=== PATIENT | female | born 1970 | race African-American/Black ===

== ENCOUNTER 2018-07-03 12:48 | Inpatient (IN) | payer OTHER ==
--- NOTE | 2018-07-03 13:34 | PDOC ---
Attending Attestation - Resident Resident Name: JacMatias - ED Attending Attestation I have performed the following: I have examined & evaluated the patient, The case was reviewed & discussed with the resident, I agree w/resident's findings & plan, Exceptions are as noted - HPI HPI: 47 yo F history HIV, compliant with ART as per [facility] presents with fever, AMS. As per [facility], patient was confused when they evaluated her. She was not cooperative with exam which is not her baseline (typically she is pleasant and cooperative). She states that nothing is wrong, however, she is intermittently falling asleep during exam. She denies any intoxication, drug use. Very limited history due to clinical status. - Physicial Exam PE: GENERAL: Somnolent, wakes up to voice and answers questions partially, then falls asleep again. No acute distress HEAD: No signs of trauma EYES: PERRLA, EOMI, sclera anicteric, conjunctiva clear ENT: Auricles normal inspection, hearing grossly normal, nares patent, oropharynx clear without exudates. Dry mucosa NECK: Normal ROM, supple, no lymphadenopathy, JVD, or masses LUNGS: Breath sounds equal, clear to auscultation bilaterally. No wheezes, and no crackles HEART: Regular rate and rhythm, normal S1 and S2, no murmurs, rubs or gallops ABDOMEN: Soft, nontender, normoactive bowel sounds. No guarding, no rebound. No masses EXTREMITIES: Normal range of motion, no edema. No clubbing or cyanosis. No cords, erythema, or tenderness NEUROLOGICAL: Cranial nerves II through XII grossly intact. Slurred speech. Gait not tested due to somnolence. Motor and sensation intact SKIN: Warm, Dry, normal turgor, no rashes or lesions noted. - Medical Decision Making Pt presents with AMS, found to have fever and hypoxia. DDx includes sepsis, pna , hypercarbic resp failure, intoxication.
[2018-07-03] MEDS ORDERED: HALOPERIDOL LACTATE 5 MG/ML ONE (13:40)
[2018-07-03] MEDS ORDERED: HALOPERIDOL LACTATE 5 MG/ML IM ONE (13:48)
[2018-07-03 14:21] LABS: BASO % 0.6 % (0-2.0); EOS % 0.8 % (0-4.5); HEMATOCRIT 36.4 % (32.4-45.2); HEMOGLOBIN 12.2 GM/dL (10.7-15.3); LYMPH % 24.7 % (8-40); MCH 30.9 pg (25.7-33.7); MCHC 33.6 g/dl (32.0-36.0); MEAN CELL VOLUME 92.2 fl (80-96); MEAN PLT VOLUME 8.2 fl (7.5-11.1); MONO % 8.4 % (3.8-10.2); NEUT % 65.5 % (42.8-82.8); PLATELET COUNT 172 K/MM3 (134-434); RBC 3.95 M/mm3 (3.60-5.2); RDW 14.4 % (11.6-15.6); VENOUS PC02 55.4 mmHg (38-52); VENOUS PH 7.32 (7.32-7.42); VENOUS PO2 34.4 mmHg (28-48); WHITE BLOOD COUNT 5.6 K/mm3 (4.0-10.0)
[2018-07-03 14:42] LABS: INR 1.1 (0.83-1.09)
[2018-07-03 14:44] LABS: ACTIVATED PTT 33.6 SECONDS (25.2-36.5)
[2018-07-03 15:09] LABS: ALBUMIN 3.2 g/dl (3.4-5.0); ALK PHOS 95 U/L (45-117); ANION GAP 6 MMOL/L (8-16); BILIRUBIN,TOTAL 0.4 mg/dL (0.2-1); BLOOD UREA NITROGEN 13 mg/dL (7-18); CALCIUM 7.8 mg/dL (8.5-10.1); CHLORIDE 107 mmol/L (98-107); CO2 26 mmol/L (21-32); CREATININE 0.8 mg/dL (0.55-1.3); GLUCOSE,RANDOM 100 mg/dL (74-106); POTASSIUM 4.2 mmol/L (3.5-5.1); SGOT/AST 37 U/L (15-37); SGPT/ALT 30 U/L (13-61); SODIUM 139 mmol/L (136-145); TOT PROT 8.2 g/dl (6.4-8.2)
--- NOTE | 2018-07-03 15:23 | PDOC ---
History of Present Illness - General Chief Complaint: Cold Symptoms Stated Complaint: R/O PNE,AMS Time Seen by Provider: 07/03/18 13:06 History Source: Patient Exam Limitations: No Limitations - History of Present Illness Initial Comments: 47 yo female pmh of HIV (viral load undetectable, CD4 usually 600s) and scoliosis presents to the ED from PCP office (Dr. Niru Barfield) for AMS. Pt reportedly compliant with treatments and became agitated at office, PCP states this is not Pts baseline. Pt denies any complaints while in the ED but noted to be confused, unaware of how she came to the ED and attempts to dress herself and leave. 07/03/18 21:20 Pt on methadone program, 35 mg per day, received dose today Past History - Past Medical History Allergies/Adverse Reactions: Allergies Allergy/AdvReac Type Severity Reaction Status Date / Time doxycycline calcium Allergy Unknown Hives Verified 07/03/18 18:36 [From Vibramycin] doxycycline hyclate Allergy Unknown Hives Verified 07/03/18 18:36 [From Vibramycin] doxycycline monohydrate Allergy Unknown Hives Verified 07/03/18 18:36 [From Vibramycin] Home Medications: Ambulatory Orders Mometasone Furoate [Nasonex] 2 sprays DAILY 06/03/11 Zolpidem Tartrate [Ambien] 10 tab PO HS PRN #30 tablet MDD 1 04/02/18 Abacavir/Dolutegravir/Lamivudi [Triumeq 600-50-300 mg Tablet] 1 each PO DAILY # 30 tablet 05/26/18 Albuterol Sulfate Inhaler - [Ventolin HFA Inhaler -] 2 inh PO Q4H #1 inh Citalopram Hydrobromide [Celexa -] 10 tab PO DAILY #5 tablet 05/26/18 Loratadine [Claritin -] 10 mg PO DAILY #30 tablet 05/26/18 Montelukast Na [Singulair -] 10 mg PO HS #30 tablet 05/26/18 Multivitamin,Therapeutic [Thera] 1 each PO DAILY #30 tablet 05/26/18 Tenofovir Disoproxil Fumarate [Viread -] 300 mg PO DAILY #30 tablet 05/26/18 Anemia: No Asthma: Yes Cancer: No Cardiac Disorders: No CVA: No COPD: No CHF: No Dementia: No Diabetes: No GI Disorders: No Disorders: No HTN: No Hypercholesterolemia: No Liver Disease: No Seizures: No Thyroid Disease: No - Suicide/Smoking/Psychosocial Hx Smoking History: Current every day smoker Have you smoked in the past 12 months: Yes Number of Cigarettes Smoked Daily: 20 If you are a former smoker, when did you quit?: 3 Cigars Per Day: 0 Information on smoking cessation initiated: No Hx Alcohol Use: Yes (unsure of how much) Drug/Substance Use Hx: Yes (prescribed) Substance Use Type: Heroin Hx Substance Use Treatment: Yes Review of Systems - Review of Systems Able to Perform ROS?: No (Pt acutely altered) *Physical Exam - Vital Signs Last Vital Signs Temp Pulse Resp BP Pulse Ox 100.9 F H 104 H 18 142/79 98 07/03/18 12:50 07/03/18 12:50 07/03/18 12:50 07/03/18 12:50 07/03/18 12:50 - Physical Exam General Appearance: Yes: Nourished, Appropriately Dressed. No: Apparent Distress HEENT: positive: EOMI, GINO Respiratory/Chest: positive: Lungs Clear, Normal Breath Sounds Cardiovascular: positive: Regular Rhythm, Tachycardia. negative: Edema, JVD Vascular Pulses: Dorsalis-Pedis (R): 4+, Doralis-Pedis (L): 4+ Gastrointestinal/Abdominal: positive: Flat, Soft. negative: Pulsatile Mass, Tenderness Musculoskeletal: negative: CVA Tenderness Extremity: positive: Normal Capillary Refill Integumentary: positive: Normal Color, Dry, Warm Neurologic: positive: Motor Strength 5/5, Confused, Disoriented. negative: Fully Oriented (AOX2), Normal Mood/Affect (aggitated and attempts to leave ED without assesment), Facial Droop, Numbness, Sensory Deficit Moderate Sedation - Procedure Monitoring Vital Signs: Procedure Monitoring Vital Signs Temperature 100.9 F H 07/03/18 12:50 Pulse Rate 104 H 07/03/18 12:50 Respiratory Rate 18 07/03/18 12:50 Blood Pressure 142/79 07/03/18 12:50 O2 Sat by Pulse Oximetry (%) 98 07/03/18 12:50 ED Treatment Course - LABORATORY CBC & Chemistry Diagram: 07/04/18 08:30 07/04/18 08:30 - ADDITIONAL ORDERS Additional order review: Laboratory Results 07/03/18 07/03/18 07/03/18 14:05 14:05 14:05 PT with INR 13.00 INR 1.10 H PTT (Actin FS) 33.6 VBG pH 7.32 POC VBG pCO2 55.4 H POC VBG pO2 34.4 Mixed VBG HCO3 27.4 H Lactic Acid Ammonia 29.69 07/03/18 14:00 PT with INR INR PTT (Actin FS) VBG pH POC VBG pCO2 POC VBG pO2 Mixed VBG HCO3 Lactic Acid 0.6 Ammonia 07/03/18 14:05 RBC 3.95 MCV 92.2 MCHC 33.6 RDW 14.4 MPV 8.2 Neutrophils % 65.5 D Lymphocytes % 24.7 D Monocytes % 8.4 Eosinophils % 0.8 Basophils % 0.6 - Medications Given in the ED: ED Medications Discontinued Medications Generic Name Dose Route Start Last Admin Trade Name Freq PRN Reason Stop Dose Admin Haloperidol 5 mg 07/03/18 13:48 07/03/18 13:58 Haldol Injection (Fast Acting) - IM 07/03/18 13:49 5 mg NOW ONE Administration Medical Decision Making - Medical Decision Making 07/03/18 20:19 47 yo female PMH of HIV presents from PCP office confused. Vitals: 100.9 temp 104 HR 142/79 BP Septic workup, drug screen under way. Pt refusing CXR on multiple attempts Pt later agrees to CXR, it shows a new infiltrate. Will treat for CAP and admit Dr. Richardson agrees to admit pt *DC/Admit/Observation/Transfer Diagnosis at time of Disposition: Community acquired pneumonia of right lung - Discharge Dispostion Disposition: AGAINST MEDICAL ADVICE Condition at time of disposition: Guarded Decision to Admit order: Yes - Referrals - Patient Instructions - Post Discharge Activity
[2018-07-03] MEDS ORDERED: ACETAMINOPHEN 325 MG TABLET (FP) PO ONE (20:17)
[2018-07-03 20:18] LABS: URINE APPEARANCE SLCLOUDY; URINE BILIRUBIN NEGATIVE (<2.0 mg/dL); URINE COLOR YELLOW; URINE GLUCOSE (UA) NEGATIVE (NEGATIVE); URINE KETONE NEGATIVE (NEGATIVE); URINE LEUK ESTERASE NEGATIVE (NEGATIVE); URINE NITRITE NEGATIVE (NEGATIVE); URINE PROTEIN 1+ (NEGATIVE); URINE UROBILINOGEN NEGATIVE mg/dL (0.2-1.0)
[2018-07-03] MEDS ORDERED: ACETAMINOPHEN 325 MG TABLET (FP) ONE (20:18)
[2018-07-03 20:33] LABS: COCAINE, UR NEGATIVE ng/ml (CUTOFF=300); OPIATES, URI NEGATIVE ng/ml (CUTOFF=300); PHENCYCLIDINE,URINE NEGATIVE ng/ml (CUTOFF=25); URINE AMPHETAMINES NEGATIVE ng/ml (CUTOFF=500); URINE BARBITURATES NEGATIVE ng/ml (CUTOFF=200); URINE BENZODIAZEPINES NEGATIVE ng/ml (CUTOFF=200)
[2018-07-03 20:35] LABS: METHADONE, UR POSITIVE ng/ml (CUTOFF=300)
[2018-07-03 20:55] LABS: EPI CELLS RARE /HPF (FEW); URINE MUCUS RARE
[2018-07-03] MEDS ORDERED: CEFTRIAXONE 1,000 MG in DEXTROSE 5%-WATER - 50 ML IVPB ONE (21:27)
[2018-07-03] MEDS ORDERED: AZITHROMYCIN IVPB 500 MG in DEXTROSE 5%-WATER - 250 ML IVPB ONE (21:27)
--- NOTE | 2018-07-03 22:11 | PN ---
Teaching Attending Note Name of Resident: Puja Mora ATTENDING PHYSICIAN STATEMENT I saw and evaluated the patient. I reviewed the resident's note and discussed the case with the resident. I agree with the resident's findings and plan as documented. SUBJECTIVE: Patient is a 47 year old woman with PMH of Depression, asthma, positive PPD, tobacco use, HIV disease (viral load undetectable, CD4 usually 600s) and scoliosis who presents to the ER from PCP's office (Dr. Niru Barfield) for AMS. Had gone in to see PCP for symptoms of acute asthma exacerbation. She reportedly is compliant with treatments and became agitated at office and PCP states this is not her baseline. Patient offer no specific complaints while in the ER but noted to be confused, unaware of how she came to the ER and attempts to dress herself and leave. Given Haldol in the ER for agitation. She is on methadone program (35 mg/daily), and received today's dose. OBJECTIVE: Alert Vital Signs Period Temp Pulse Resp BP Sys/[place] Pulse Ox Last 24 Hr 100.9 F 104 18 142/79 98 HEENT: No Jaundice, eye redness or discharge, PERRLA, EOMI. Normocephalic, atraumatic. External ears are normal and hearing is grossly intact. No nasal discharge. Neck: Supple, nontender. No palpable adenopathy or thyromegaly. No JVD Chest: Good effort. Clear to auscultation and percussion. Heart: Regular. No S3, rub or murmur Abdomen: Not distended, soft, nontender and no HSM. No rebound or guarding. Normoactive bowel sounds. Ext: Peripheral pulses intact. No leg edema. Skin: Warm and dry. No petechiae, rash or ecchymosis. Neuro: Alert. Oriented x3. CN 2-12 grossly intact. Sensation grossly intact in all four extremities and DTR are symmetric. Current Medications Generic Name Dose Route Start Last Admin Trade Name Freq PRN Reason Stop Dose Admin Enoxaparin Sodium 40 mg 07/04/18 10:00 Lovenox - SQ DAILY [facility] Home Medications Medication Instructions Recorded Mometasone Furoate [Nasonex] 2 sprays DAILY 06/03/11 Zolpidem Tartrate [Ambien] 10 tab PO HS PRN #30 tablet MDD 1 04/02/18 Abacavir/Dolutegravir/Lamivudi 1 each PO DAILY #30 tablet 05/26/18 [Triumeq 600-50-300 mg Tablet] Albuterol Sulfate Inhaler - 2 inh PO Q4H #1 inh 05/26/18 [Ventolin HFA Inhaler -] Citalopram Hydrobromide [Celexa -] 10 tab PO DAILY #5 tablet 05/26/18 Loratadine [Claritin -] 10 mg PO DAILY #30 tablet 05/26/18 Montelukast Na [Singulair -] 10 mg PO HS #30 tablet 05/26/18 Multivitamin,Therapeutic [Thera] 1 each PO DAILY #30 tablet 05/26/18 Tenofovir Disoproxil Fumarate 300 mg PO DAILY #30 tablet 05/26/18 [Viread -] Abnormal Lab Results 07/03/18 07/03/18 07/03/18 14:05 14:05 14:05 INR 1.10 H POC VBG pCO2 55.4 H Mixed VBG HCO3 27.4 H Anion Gap 6 L Calcium 7.8 L Albumin 3.2 L Urine Protein Urine Blood Methadone Screen Acetaminophen < 10 L 07/03/18 07/03/18 19:48 19:48 INR POC VBG pCO2 Mixed VBG HCO3 Anion Gap Calcium Albumin Urine Protein 1+ H Urine Blood 1+ H Methadone Screen Positive A* Acetaminophen ASSESSMENT AND PLAN: 1. Pneumonia with ?acute toxic metabolic encephalopathy - CXR shows RLL infiltrate and bullous changes in both apical zones (R>L). Being treated with Rocephin and Azithromycin, duoneb and solumedrol 40 mg qd. Altered mentation still a puzzle. Will get head CT scan. Case discussed with ID travel service consultant who feels that meningitis is unlikely, thus Lumbar Puncture is not indicated. Will monitor her closely with neurochecks and fall precautions. Will continue HAART and daily methadone. Urine toxicology revealed only methadone. 2. Tobacco Use We will provide patient all the necessary assistance to facilitate smoking cessation and prescribe Nicotine patch. 3. Obesity - Will provide patient all the necessary assistance, counseling and positive reinforcement to facilitate weight loss. Consult [employer] history professor. 4. DVT prophylaxis - Lovenox 40 mg SQ q 24 hours. 5. Advance directives - Full code
[2018-07-03] MEDS ORDERED: ZOLPIDEM TARTRATE 5 MG TABLET PO PRN (23:01)
[2018-07-03] MEDS ORDERED: ALBUTEROL SO4 2.5/IPRATROPIUM 0.5 INH SOL 3 ML VIAL.NEB. NEB PRN (23:15)
--- NOTE | 2018-07-03 23:18 | HP ---
CHIEF COMPLAINT:altered mental status/PNA PCP:[facility]- anya zelaya HISTORY OF PRESENT ILLNESS: 47 y/o female with PMH of HIV (on HAART; last CD4 600's viral load undetectable) , asthma was sent in from her PCP after she was found to be altered. She initially presented to the office for worsening of her asthma and increase use of her rescue inhaler. When she got to her PCP she was found to not be at her baseline- was found to be more confused and agitated so she was sent to the hospital. upon arrival to the hospital she was slightly somnolent then became agitated requiring the use of haldol. she denies any sick contacts at home or any recent travel. upon my examination she was alert/oriented X3 hwoever unclear exactly why she was sent to the hospital ER course was notable for: (1)t: 100.9, HR 104 (2)labs wnl; U/A negative; head CT pending (3)CXR: RLL infiltrate Recent Travel: denies PAST MEDICAL HISTORY: see above PAST SURGICAL HISTORY: denies Social History: Smokin-2 cigs per day for the last 15 years Alcohol:denies Drugs: former heroin; on methadone (35 daily) Family History: Allergies doxycycline calcium [From Vibramycin] Allergy (Unknown, Verified 07/03/18 18:36) Hives doxycycline hyclate [From Vibramycin] Allergy (Unknown, Verified 07/03/18 18:36) Hives doxycycline monohydrate [From Vibramycin] Allergy (Unknown, Verified 07/03/18 18 :36) Hives HOME MEDICATIONS: Home Medications Medication Instructions Recorded Mometasone Furoate [Nasonex] 2 sprays DAILY 06/03/11 Zolpidem Tartrate [Ambien] 10 tab PO HS PRN #30 tablet MDD 1 04/02/18 Abacavir/Dolutegravir/Lamivudi 1 each PO DAILY #30 tablet 05/26/18 [Triumeq 600-50-300 mg Tablet] Albuterol Sulfate Inhaler - 2 inh PO Q4H #1 inh 05/26/18 [Ventolin HFA Inhaler -] Citalopram Hydrobromide [Celexa -] 10 tab PO DAILY #5 tablet 05/26/18 Loratadine [Claritin -] 10 mg PO DAILY #30 tablet 05/26/18 Montelukast Na [Singulair -] 10 mg PO HS #30 tablet 05/26/18 Multivitamin,Therapeutic [Thera] 1 each PO DAILY #30 tablet 05/26/18 Tenofovir Disoproxil Fumarate 300 mg PO DAILY #30 tablet 05/26/18 [Viread -] REVIEW OF SYSTEMS CONSTITUTIONAL: Absent: fever, chills, diaphoresis, generalized weakness, malaise, loss of appetite, weight change HEENT: Absent: rhinorrhea, nasal congestion, throat pain, throat swelling, difficulty swallowing, mouth swelling, ear pain, eye pain, visual changes CARDIOVASCULAR: Absent: chest pain, syncope, palpitations, irregular heart rate, lightheadedness , peripheral edema RESPIRATORY: Present: cough, shortness of breath Absent: dyspnea with exertion, orthopnea, wheezing, stridor, hemoptysis GASTROINTESTINAL: Absent: abdominal pain, abdominal distension, nausea, vomiting, diarrhea, constipation, melena, hematochezia GENITOURINARY: Absent: dysuria, frequency, urgency, hesitancy, hematuria, flank pain, genital pain MUSCULOSKELETAL: Absent: myalgia, arthralgia, joint swelling, back pain, neck pain SKIN: Absent: rash, itching, pallor HEMATOLOGIC/IMMUNOLOGIC: Absent: easy bleeding, easy bruising, lymphadenopathy, frequent infections ENDOCRINE: Absent: unexplained weight gain, unexplained weight loss, heat intolerance, cold intolerance NEUROLOGIC: Absent: headache, focal weakness or paresthesias, dizziness, unsteady gait, seizure, mental status changes, bladder or bowel incontinence PSYCHIATRIC: Absent: anxiety, depression, suicidal or homicidal ideation, hallucinations. PHYSICAL EXAMINATION Vital Signs - 24 hr 07/03/18 12:50 Temperature 100.9 F H Pulse Rate 104 H Respiratory 18 Rate Blood Pressure 142/79 O2 Sat by Pulse 98 Oximetry (%) GENERAL: Awake, alert, oriented to self/time/place- unsure however why she was sent to the ED.. NECK: no JVD; no lymphadenopathy. LUNGS: coarse breath sounds at B/L bases HEART: Regular rate and rhythm, normal S1 and S2 without murmur, rub or gallop. ABDOMEN: Soft, nontender, not distended, normoactive bowel sounds, no guarding, no rebound, no masses. No hepatomegaly or splenomegaly. MUSCULOSKELETAL: Normal range of motion at all joints. No bony deformities or tenderness. No CVA tenderness. EXTREMITIES: warm; well-perfused; no clubbing/cyanosis or edema NEUROLOGICAL: Cranial nerves II-XII intact. Normal speech. Normal gait.sensation intact B/L; 5/5 strength UE and LE PSYCHIATRIC: Cooperative. Good eye contact. Appropriate mood and affect. SKIN: Warm, dry, normal turgor, no rashes or lesions noted, normal capillary refill. Laboratory Results - last 24 hr 07/03/18 07/03/18 07/03/18 14:00 14:05 14:05 WBC 5.6 RBC 3.95 Hgb 12.2 Hct 36.4 MCV 92.2 MCH 30.9 MCHC 33.6 RDW 14.4 Plt Count 172 D MPV 8.2 Absolute Neuts (auto) 3.6 Neutrophils % 65.5 D Lymphocytes % 24.7 D Monocytes % 8.4 Eosinophils % 0.8 Basophils % 0.6 Nucleated RBC % 0 PT with INR INR PTT (Actin FS) VBG pH POC VBG pCO2 POC VBG pO2 Mixed VBG HCO3 Sodium 139 Potassium 4.2 Chloride 107 Carbon Dioxide 26 Anion Gap 6 L BUN 13 Creatinine 0.8 Creat Clearance w eGFR > 60 Random Glucose 100 Lactic Acid 0.6 Calcium 7.8 L Total Bilirubin 0.4 AST 37 ALT 30 Alkaline Phosphatase 95 Ammonia Troponin I < 0.02 Total Protein 8.2 Albumin 3.2 L Serum , Qual Urine Color Urine Appearance Urine pH Ur Specific [place] Urine Protein Urine Glucose (UA) Urine Ketones Urine Blood Urine Nitrite Urine Bilirubin Urine Urobilinogen Ur Leukocyte Esterase Urine WBC (Auto) Urine RBC (Auto) Ur Epithelial Cells Urine Mucus Salicylates 4.2 Opiates Screen Methadone Screen Acetaminophen < 10 L Barbiturate Screen Phencyclidine Screen Ur Amphetamines Screen MDMA (Ecstasy) Screen Benzodiazepines Screen Cocaine Screen U Marijuana (THC) Screen Alcohol, Quantitative < 3.0 07/03/18 07/03/18 07/03/18 14:05 14:05 14:05 WBC RBC Hgb Hct MCV MCH MCHC RDW Plt Count MPV Absolute Neuts (auto) Neutrophils % Lymphocytes % Monocytes % Eosinophils % Basophils % Nucleated RBC % PT with INR 13.00 INR 1.10 H PTT (Actin FS) 33.6 VBG pH 7.32 POC VBG pCO2 55.4 H POC VBG pO2 34.4 Mixed VBG HCO3 27.4 H Sodium Potassium Chloride Carbon Dioxide Anion Gap BUN Creatinine Creat Clearance w eGFR Random Glucose Lactic Acid Calcium Total Bilirubin AST ALT Alkaline Phosphatase Ammonia 29.69 Troponin I Total Protein Albumin Serum , Qual Urine Color Urine Appearance Urine pH Ur Specific [place] Urine Protein Urine Glucose (UA) Urine Ketones Urine Blood Urine Nitrite Urine Bilirubin Urine Urobilinogen Ur Leukocyte Esterase Urine WBC (Auto) Urine RBC (Auto) Ur Epithelial Cells Urine Mucus Salicylates Opiates Screen Methadone Screen Acetaminophen Barbiturate Screen Phencyclidine Screen Ur Amphetamines Screen MDMA (Ecstasy) Screen Benzodiazepines Screen Cocaine Screen U Marijuana (THC) Screen Alcohol, Quantitative 07/03/18 07/03/18 07/03/18 15:02 19:48 19:48 WBC RBC Hgb Hct MCV MCH MCHC RDW Plt Count MPV Absolute Neuts (auto) Neutrophils % Lymphocytes % Monocytes % Eosinophils % Basophils % Nucleated RBC % PT with INR INR PTT (Actin FS) VBG pH POC VBG pCO2 POC VBG pO2 Mixed VBG HCO3 Sodium Potassium Chloride Carbon Dioxide Anion Gap BUN Creatinine Creat Clearance w eGFR Random Glucose Lactic Acid Calcium Total Bilirubin AST ALT Alkaline Phosphatase Ammonia Troponin I Total Protein Albumin Serum , Qual Negative Urine Color Yellow Urine Appearance Slcloudy Urine pH 5.0 Ur Specific [place] 1.026 Urine Protein 1+ H Urine Glucose (UA) Negative Urine Ketones Negative Urine Blood 1+ H Urine Nitrite Negative Urine Bilirubin Negative Urine Urobilinogen Negative Ur Leukocyte Esterase Negative Urine WBC (Auto) 1 Urine RBC (Auto) <1 Ur Epithelial Cells Rare Urine Mucus Rare Salicylates Opiates Screen Negative Methadone Screen Positive A* Acetaminophen Barbiturate Screen Negative Phencyclidine Screen Negative Ur Amphetamines Screen Negative MDMA (Ecstasy) Screen Negative Benzodiazepines Screen Negative Cocaine Screen Negative U Marijuana (THC) Screen Negative Alcohol, Quantitative ASSESSMENT/PLAN: 47 y/o female with PMH of HIV and asthma presents to the ED after being sent in from her PCP due to AMS and found to have a RLL infiltrate on chest xray. #acute metabolic encephalopathy possibly 2/2 PNA CXR shows RLL infiltrate ammonia level 29.69 utox positive strictly for methadone only -discussed with ID; c/w ceftriaxone and azithromycin -f/u blood cx -f/u head CT -Dr. kearney consulted -jamshid GARCIASN -neurochecks #HIV -c/w HAART therapy -last CD4 count in 600's; last viral load undectable -try and obtain outpatient records #Methadone use patient states her daily dose is 35mg received dose today -will need to confirm in AM F/E/N not on fluids monitor electrolytes NPO for now given that patient was altered upon arrival DVT PPX: lovenox Problem List - Problem (1) Altered mental status Code(s): R41.82 - ALTERED MENTAL STATUS, UNSPECIFIED (2) Community acquired pneumonia of right lung Code(s): J18.9 - PNEUMONIA, UNSPECIFIED ORGANISM (3) HIV (human immunodeficiency virus infection) Code(s): Z21 - ASYMPTOMATIC HUMAN IMMUNODEFICIENCY VIRUS INFECTION STATUS Visit type - Emergency Visit Emergency Visit: Yes ED Registration Date: 07/03/18 Care time: The patient presented to the Emergency Department on the above date and was hospitalized for further evaluation of their emergent condition. - New Patient This patient is new to me today: Yes Date on this admission: 07/03/18 - Critical Care Critical Care patient: No
[2018-07-04] MEDS ORDERED: AZITHROMYCIN IVPB 500 MG/250 ML BAG IVPB ONE (00:17)
[2018-07-04] MEDS ORDERED: CEFTRIAXONE 1 GM/50 ML BAG ONE (00:17)
[2018-07-04 03:17] VITALS: BMI 30.8
[2018-07-04] MEDS ORDERED: PT OWN MED DRAWER 7, Y5N ONE (09:24)
[2018-07-04] MEDS ORDERED: cefTRIAXone SODIUM 1 GM VIAL ONE (09:24)
[2018-07-04] MEDS ORDERED: DEXTROSE 5%-WATER - 50 ML IVPB ONE (09:24)
[2018-07-04] MEDS ORDERED: CEFTRIAXONE 1 GM in DEXTROSE 5%-WATER - 50 ML IVPB ONE (09:30)
[2018-07-04] MEDS: ENOXAPARIN NA (PORCINE) 40 MG/0.4 ML DISP.SYRIN SQ SCH (09:47)
[2018-07-04] MEDS: MULTIVITAMINS THER W-MINERALS COMBO TABLET (FP) PO SCH (09:48)
[2018-07-04 10:22] LABS: BASO % 0.2 % (0-2.0); EOS % 1.6 % (0-4.5); HEMATOCRIT 34.6 % (32.4-45.2); HEMOGLOBIN 11.5 GM/dL (10.7-15.3); LYMPH % 53.2 % (8-40); MCH 30.7 pg (25.7-33.7); MCHC 33.3 g/dl (32.0-36.0); MEAN CELL VOLUME 92.3 fl (80-96); MEAN PLT VOLUME 8.2 fl (7.5-11.1); MONO % 12.6 % (3.8-10.2); NEUT % 32.4 % (42.8-82.8); PLATELET COUNT 163 K/MM3 (134-434); RBC 3.74 M/mm3 (3.60-5.2); RDW 14.3 % (11.6-15.6); WHITE BLOOD COUNT 3.5 K/mm3 (4.0-10.0)
[2018-07-04] MEDS: ABACAVIR/DOLUTEGRAVIR/LAMIVUDI (TRIUMEQ) TABLET -NF PO SCH (10:36)
[2018-07-04] MEDS: CITALOPRAM HYDROBROMIDE 10 MG TABLET (FP) PO SCH (10:36)
[2018-07-04] MEDS: AZITHROMYCIN IVPB 250 MG in DEXTROSE 5%-WATER - 250 ML IVPB SCH (10:37)
[2018-07-04 10:50] LABS: ALBUMIN 3.1 g/dl (3.4-5.0); ALK PHOS 79 U/L (45-117); ANION GAP 5 MMOL/L (8-16); BILIRUBIN,TOTAL 0.3 mg/dL (0.2-1); BLOOD UREA NITROGEN 10 mg/dL (7-18); CALCIUM 8.1 mg/dL (8.5-10.1); CHLORIDE 105 mmol/L (98-107); CO2 29 mmol/L (21-32); CREATININE 0.8 mg/dL (0.55-1.3); GLUCOSE,RANDOM 79 mg/dL (74-106); MAGNESIUM 2.3 mg/dL (1.8-2.4); PHOSPHOROUS 3.3 mg/dL (2.5-4.9); SGOT/AST 36 U/L (15-37); SGPT/ALT 30 U/L (13-61); SODIUM 139 mmol/L (136-145); TOT PROT 7.9 g/dl (6.4-8.2)
--- NOTE | 2018-07-04 14:25 | CON.NEURO ---
Consult Consult Specialty:: neuro Reason for Consultation:: AMS - History of Present Illness History of Present Illness: 47 y/o female with PMH of HIV (on HAART; last CD4 600's viral load undetectable) , asthma was sent in from her PCP after she was found to be altered. She initially presented to the office for worsening of her asthma and increase use of her rescue inhaler. When she got to her PCP she was found to not be at her baseline- was found to be more confused and agitated so she was sent to the hospital. upon arrival to the hospital she was slightly somnolent then became agitated requiring the use of haldol. she denies any sick contacts at home or any recent travel. upon my examination she was alert/oriented X3 however unclear exactly why she was sent to the hospital I saw and examined the pt , hx as above ; she has refused CTH wo ; she c/o ahving cough w brown sputum ;she was found to have R LL infiltration on CXR , she is mildly sleepy on this encounter. She c/o chronic LBP and uses cane for ambulation. - Past Medical History ...LMP: 06/02/11 ...: No - Alcohol/Substance Use Hx Alcohol Use: Yes (unsure of how much) - Smoking History Smoking history: Current every day smoker Have you smoked in the past 12 months: Yes Aproximately how many cigarettes per day: 20 If you are a former smoker, when did you quit?: 3 Home Medications - Allergies Allergies/Adverse Reactions: Allergies Allergy/AdvReac Type Severity Reaction Status Date / Time doxycycline calcium Allergy Unknown Hives Verified 07/03/18 18:36 [From Vibramycin] doxycycline hyclate Allergy Unknown Hives Verified 07/03/18 18:36 [From Vibramycin] doxycycline monohydrate Allergy Unknown Hives Verified 07/03/18 18:36 [From Vibramycin] - Home Medications Home Medications: Ambulatory Orders Mometasone Furoate [Nasonex] 2 sprays DAILY 06/03/11 Zolpidem Tartrate [Ambien] 10 tab PO HS PRN #30 tablet MDD 1 04/02/18 Abacavir/Dolutegravir/Lamivudi [Triumeq 600-50-300 mg Tablet] 1 each PO DAILY # 30 tablet 05/26/18 Albuterol Sulfate Inhaler - [Ventolin HFA Inhaler -] 2 inh PO Q4H #1 inh Citalopram Hydrobromide [Celexa -] 10 tab PO DAILY #5 tablet 05/26/18 Loratadine [Claritin -] 10 mg PO DAILY #30 tablet 05/26/18 Montelukast Na [Singulair -] 10 mg PO HS #30 tablet 05/26/18 Multivitamin,Therapeutic [Thera] 1 each PO DAILY #30 tablet 05/26/18 Tenofovir Disoproxil Fumarate [Viread -] 300 mg PO DAILY #30 tablet 05/26/18 Family Disease History - Family Disease History Family Disease History: Diabetes: Grandparent, Mother (cervical ca), Heart Disease: Grandparent, Mother, CA: Mother, Other: Father (apr'd before pt was born), Brother (2 a&w), Sister (1 d age 50's drug od), Son (3 a&w) Physical Exam-Neuro Vital Signs: Vital Signs Temperature 98.6 F 07/04/18 14:03 Pulse Rate 85 07/04/18 14:03 Respiratory Rate 18 07/04/18 12:00 Blood Pressure 111/51 L 07/04/18 14:03 O2 Sat by Pulse Oximetry (%) 98 07/04/18 12:00 Constitutional: Yes: Well Nourished Neck: Yes: Supple Cardiovascular: Yes: Regular Rate and Rhythm Respiratory: Yes: WNL, Cough Musculoskeletal: Yes: Back Pain Edema: No Psychiatric: Yes: Alert, Other (sleepy ) Labs: CBC, BMP 07/04/18 08:30 07/04/18 08:30 INR, PTT INR 1.10 (0.83-1.09) H 07/03/18 14:05 - Neuro Exam Level Of Consciousness: Yes: Oriented to Person, Oriented to Place, Oriented to Time Eyes: Yes: PERRLA, Other (R eye exotropia ) Cranial Nerves II-XII Intact: Yes Gag: Present DTR's: 1+ Left Bicep, 1+ Right Bicep, 1+ Left Tricep, 1+ Right Tricep, 1+ Left Brachioradialis, 1+ Right Brachioradialis, 1+ Left Achilles, 1+ Right Achilles Babinski: Absent Response to light touch: Normal Response to pain prick: Normal Coordination: Normal: Finger to Nose Motor Strength: 5/5: Left Arm, Right Arm, Left Leg, Right Leg Gait: Other (use cane for ambulation) Problem List - Problems (1) Altered mental status Code(s): R41.82 - ALTERED MENTAL STATUS, UNSPECIFIED (2) Community acquired pneumonia of right lung Code(s): J18.9 - PNEUMONIA, UNSPECIFIED ORGANISM (3) HIV (human immunodeficiency virus infection) Code(s): Z21 - ASYMPTOMATIC HUMAN IMMUNODEFICIENCY VIRUS INFECTION STATUS Assessment/Plan 47 y/o w h/o HIV CD4: 600 , viral load not detected and chronic LBP p/w AMS , was found to have R LL infiltration on her lung; exam only mildy lethargic intermittently , no deficit . Hx and exam suggestive of infectious encephalopathy due to pneumonia vs HIV encephalopathy vs TIA . Pt refuses CTH I suggest psych consult if pt continues to refuse tx / procedure to evaluate for competency monitor ammonium level neuro check q 4 hours MRI brain when possible. Health maintenance per primary team. Thank you. Mendoza Martinez MD [phone]
--- NOTE | 2018-07-04 15:46 | PN ---
Progress Note (short form) - Note Progress Note: ID consult dictated stable HIV cd4 over 100, viral load negative recent quant 03/22 negative admitted with low grade fever 100.8 and hypoxia ?LLL infiltrate continue rocephin/zithromax urinary antigens influenza swab stable HIV- doubt OI- continue antiretrovirals f/u with neurology- head ct planned if patient is agreeable Problem List - Problems (1) Community acquired pneumonia of right lung Code(s): J18.9 - PNEUMONIA, UNSPECIFIED ORGANISM (2) HIV (human immunodeficiency virus infection) Code(s): Z21 - ASYMPTOMATIC HUMAN IMMUNODEFICIENCY VIRUS INFECTION STATUS
--- NOTE | 2018-07-04 21:14 | PN ---
Progress Note (short form) - Note Progress Note: Patient is comfortable with no acute distress. wants her methadone. Vital Signs Temperature 98.6 F 07/04/18 14:03 Pulse Rate 85 07/04/18 14:03 Respiratory Rate 18 07/04/18 12:00 Blood Pressure 111/51 L 07/04/18 14:03 O2 Sat by Pulse Oximetry (%) 98 07/04/18 16:00 GENERAL: Awake, alert, oriented x3 . NECK: no JVD; no lymphadenopathy. LUNGS: decreased BS BL at the bases. HEART: RRR, normal S1 and S2 without murmur, rub or gallop. ABDOMEN: Soft, nontender, not distended, positive for BS, no guarding, no rebound, no masses. MUSCULOSKELETAL: Normal range of motion at all joints. No CVA tenderness. EXTREMITIES: warm; well-perfused; no clubbing/cyanosis or edema NEUROLOGICAL: Cranial nerves II-XII intact. Normal speech. sensation intact B/L ; 5/5 strength UE and LE PSYCHIATRIC: Cooperative. Appropriate mood and affect. SKIN: Warm, dry, normal turgor, no rashes or lesions noted. CBCD WBC 3.5 K/mm3 (4.0-10.0) L 07/04/18 08:30 RBC 3.74 M/mm3 (3.60-5.2) 07/04/18 08:30 Hgb 11.5 GM/dL (10.7-15.3) 07/04/18 08:30 Hct 34.6 % (32.4-45.2) 07/04/18 08:30 MCV 92.3 fl (80-96) 07/04/18 08:30 MCHC 33.3 g/dl (32.0-36.0) 07/04/18 08:30 RDW 14.3 % (11.6-15.6) 07/04/18 08:30 Plt Count 163 K/MM3 (134-434) 07/04/18 08:30 MPV 8.2 fl (7.5-11.1) 07/04/18 08:30 CMP Sodium 139 mmol/L (136-145) 07/04/18 08:30 Potassium 4.0 mmol/L (3.5-5.1) 07/04/18 08:30 Chloride 105 mmol/L (98-107) 07/04/18 08:30 Carbon Dioxide 29 mmol/L (21-32) 07/04/18 08:30 Anion Gap 5 MMOL/L (8-16) L 07/04/18 08:30 BUN 10 mg/dL (7-18) 07/04/18 08:30 Creatinine 0.8 mg/dL (0.55-1.3) 07/04/18 08:30 Creat Clearance w eGFR > 60 (>60) 07/04/18 08:30 Random Glucose 79 mg/dL (74-106) 07/04/18 08:30 Calcium 8.1 mg/dL (8.5-10.1) L 07/04/18 08:30 Total Bilirubin 0.3 mg/dL (0.2-1) 07/04/18 08:30 AST 36 U/L (15-37) 07/04/18 08:30 ALT 30 U/L (13-61) 07/04/18 08:30 Alkaline Phosphatase 79 U/L (45-117) 07/04/18 08:30 Total Protein 7.9 g/dl (6.4-8.2) 07/04/18 08:30 Albumin 3.1 g/dl (3.4-5.0) L 07/04/18 08:30 CARDIAC ENZYMES Troponin I < 0.02 ng/ml (0.00-0.05) 07/03/18 14:05 Current Medications Generic Name Dose Route Start Last Admin Trade Name Freq PRN Reason Stop Dose Admin Abacavir/Dolutegravir/Lamivudine 1 each 07/04/18 10:00 07/04/18 10:36 Triumeq (Non-Formulary) PO 1 each DAILY LINDA Administration Albuterol/Ipratropium 1 amp 07/03/18 23:15 Duoneb - NEB Q6H PRN SHORTNESS OF BREATH Citalopram Hydrobromide 10 mg 07/04/18 10:00 07/04/18 10:36 Celexa - PO 10 mg DAILY LINDA Administration Enoxaparin Sodium 40 mg 07/04/18 10:00 07/04/18 09:47 Lovenox - SQ 40 mg DAILY LINDA Administration Azithromycin 250 mg/ Dextrose 250 mls @ 250 mls/hr 07/04/18 10:00 07/04/18 10 :37 IVPB 250 mls/hr DAILY LINDA Administration Ceftriaxone Sodium 1 gm/ 50 mls @ 100 mls/hr 07/05/18 10:00 Dextrose IVPB DAILY LINDA Protocol Multivitamins/Minerals 1 each 07/04/18 10:00 07/04/18 09:48 Theragran-M PO 1 each DAILY LINDA Administration Tenofovir Disoproxil Fumarate 300 mg 07/05/18 10:00 Viread - PO DAILY LINDA Zolpidem Tartrate 10 mg 07/03/18 23:01 Ambien - PO HS PRN INSOMNIA Home Medications Medication Instructions Recorded Mometasone Furoate [Nasonex] 2 sprays DAILY 06/03/11 Zolpidem Tartrate [Ambien] 10 tab PO HS PRN #30 tablet MDD 1 04/02/18 Abacavir/Dolutegravir/Lamivudi 1 each PO DAILY #30 tablet 05/26/18 [Triumeq 600-50-300 mg Tablet] Albuterol Sulfate Inhaler - 2 inh PO Q4H #1 inh 05/26/18 [Ventolin HFA Inhaler -] Citalopram Hydrobromide [Celexa -] 10 tab PO DAILY #5 tablet 05/26/18 Loratadine [Claritin -] 10 mg PO DAILY #30 tablet 05/26/18 Montelukast Na [Singulair -] 10 mg PO HS #30 tablet 05/26/18 Multivitamin,Therapeutic [Thera] 1 each PO DAILY #30 tablet 05/26/18 Tenofovir Disoproxil Fumarate 300 mg PO DAILY #30 tablet 05/26/18 [Viread -] Microbiology 07/03/18 14:05 Blood - Peripheral Venous Blood Culture - Preliminary NO GROWTH OBTAINED AFTER 24 HOURS, INCUBATION TO CONTINUE FOR 4 DAYS. Assessment nd plan: 47 y/o female with PMHx of HIV and asthma presents to the ED after being sent in from her PCP due to AMS and found to have a RLL infiltrate on chest xray. #acute metabolic encephalopathy possibly due to PNA on Rocephin/zith continue #HIV continue HAART therapy; last CD4 count in 600's; last viral load undectable , ID on the case. #Methadone use: patient states her daily dose is 35mg , detox consult was placed earlier today. DVT PPX: lovenox Visit type - Emergency Visit Emergency Visit: Yes ED Registration Date: 07/03/18 Care time: The patient presented to the Emergency Department on the above date and was hospitalized for further evaluation of their emergent condition. - New Patient This patient is new to me today: Yes Date on this admission: 07/04/18 - Critical Care Critical Care patient: No - Discharge Referral Referred to [facility] Med P.C.: No
[2018-07-05 06:15] VITALS: TEMP 98.3
[2018-07-05 08:12] VITALS: BP 144/91; PULSE 77
[2018-07-05] MEDS ORDERED: PT OWN MED DRAWER 7, Y5N ONE (09:53)
[2018-07-05] MEDS ORDERED: cefTRIAXone SODIUM 1 GM VIAL ONE (09:53)
[2018-07-05] MEDS ORDERED: DEXTROSE 5%-WATER - 50 ML IVPB ONE (09:53)
[2018-07-05] MEDS: CITALOPRAM HYDROBROMIDE 10 MG TABLET (FP) PO SCH (09:58)
[2018-07-05] MEDS: MULTIVITAMINS THER W-MINERALS COMBO TABLET (FP) PO SCH (09:58)
[2018-07-05] MEDS: ENOXAPARIN NA (PORCINE) 40 MG/0.4 ML DISP.SYRIN SQ SCH (09:58)
[2018-07-05] MEDS: ABACAVIR/DOLUTEGRAVIR/LAMIVUDI (TRIUMEQ) TABLET -NF PO SCH (09:59)
[2018-07-05] MEDS ORDERED: CEFTRIAXONE 1 GM in DEXTROSE 5%-WATER - 50 ML IVPB SCH (10:00)
[2018-07-05] MEDS ORDERED: TENOFOVIR DISOPROXIL FUMARATE 300 MG TABLET PO SCH (10:00)
[2018-07-05] MEDS: AZITHROMYCIN IVPB 250 MG in DEXTROSE 5%-WATER - 250 ML IVPB SCH (10:28)
--- NOTE | 2018-07-05 12:11 | CONS ---
DATE OF CONSULTATION: DATE OF DICTATION: 07/04/2018 This is a 47-year-old woman, who is followed at the [facility]. She was sent to the ER yesterday from the [facility] with fever of 100.9 and hypoxia. She was noted to be walking unsteadily but was appropriate when aroused, and she was sent to the emergency room for further evaluation. In the ER as well, she had intermittent periods of confusion, marked by otherwise normal behavior. She had no further fever. She had blood work that showed normal labs and she had a chest x-ray done that was felt to be consistent with pneumonia. She was started on ceftriaxone and Zithromax. She currently is quite sleepy. She tells me she did not sleep well last night. She is able to answer all my questions. She knows she is at [facility], she knows the date, she knows her provider, but she is very uncooperative with her care. Her past medical history is notable for HIV disease. She has a history of opioid dependence. She is on 35 mg of methadone daily. She has a history of scoliosis, asthma, allergic rhinitis, and she smokes 2 packs a day. She also has a psychiatric history and is followed by Psychiatry. She is allergic to DOXYCYCLINE. Her outpatient medications include Ambien, Viread, multivitamin, Singulair, Nasonex, Claritin, Celexa, Ventolin, and Triumeq. SOCIAL HISTORY: She lives with her children, and she is an active smoker. She denies any intravenous drug use. REVIEW OF SYSTEMS: She notes that she has an occasional frontal headache. She denies any nuchal rigidity or photophobia. She has had no nausea, vomiting or diarrhea. There is no travel history. She is not working. PHYSICAL EXAMINATION: Vital Signs: She is afebrile. Temperature is 98.6. Pulse 85. Blood pressure 111/51. She is saturating 98% on 2 L. HEENT: Normocephalic. Her eyes are anicteric. She has no thrush. Neck: Supple. She has no nuchal rigidity. Lungs: Diminished breath sounds at the bases. Heart: Regular rate and rhythm. Abdomen: Soft, nontender. Extremities: Without edema. Labs are notable for white count of 3.5, hemoglobin 11.5, platelets 163. Chemistries: LFTs are normal. BUN 10, creatinine 0.8. Urinalysis is negative. A urine toxicology screen was positive for methadone. Her T cells from March are 1156 with an undetectable viral load. Influenza screen was done and is negative. Her TB test done in March is negative as well. Cultures are pending of urine and blood. Chest x-ray is read as possible interstitial lung changes in the right lung, and possibly a right lower lobe pneumonia. In summary, this is a 47-year-old woman with very stable HIV disease, admitted from the clinic with hypoxia and fever. I would continue the ceftriaxone and Zithromax. I think it would be reasonable, given her change in mental status, to follow through with a neurology consult. She is scheduled for head CT, which she is currently refusing. I would check a Legionella urinary antigen. We did an influenza screen as well. Her T cells are very high, making it unlikely that she has any kind of opportunistic infection. Would continue her antiretrovirals as well at this time. BIANCA INIGUEZ M.D. [id number]
--- NOTE | 2018-07-05 13:35 | PN ---
Physical Exam: SUBJECTIVE: Patient seen and examined at bedside. Feels better overall. Still has a cough but is improved. Breathing overall is improved. OBJECTIVE: Vital Signs Period Temp Pulse Resp BP Sys/[place] Pulse Ox Last 24 Hr 98.3 F-98.7 F 77-94 15-20 111-144/51-93 98-98 GENERAL: The patient is awake, alert, and fully oriented, in no acute distress. EYES: extraocular movements intact, sclera anicteric ENT: Ears normal, nares patent LUNGS: b/l wheezing HEART: Regular rate and rhythm, S1, S2 ABDOMEN: Soft, nontender, nondistended, normoactive bowel sounds EXTREMITIES: warm, well-perfused, no edema. NEUROLOGICAL: Cranial nerves II through XII grossly intact. Normal speech, gait not observed. SKIN: Warm, dry Laboratory Results - last 24 hr 07/04/18 16:00 Influenza A (Rapid) Negative Influenza B (Rapid) Negative Active Medications Generic Name Dose Route Start Last Admin Trade Name Freq PRN Reason Stop Dose Admin Abacavir/Dolutegravir/Lamivudine 1 each 07/04/18 10:00 07/05/18 09:59 Triumeq (Non-Formulary) PO 1 each DAILY LINDA Administration Albuterol/Ipratropium 1 amp 07/03/18 23:15 Duoneb - NEB Q6H PRN SHORTNESS OF BREATH Citalopram Hydrobromide 10 mg 07/04/18 10:00 07/05/18 09:58 Celexa - PO 10 mg DAILY LINDA Administration Enoxaparin Sodium 40 mg 07/04/18 10:00 07/05/18 09:58 Lovenox - SQ 40 mg DAILY LINDA Administration Azithromycin 250 mg/ Dextrose 250 mls @ 250 mls/hr 07/04/18 10:00 07/05/18 10 :28 IVPB 250 mls/hr DAILY LINDA Administration Ceftriaxone Sodium 1 gm/ 50 mls @ 100 mls/hr 07/05/18 10:00 07/05/18 10:00 Dextrose IVPB 100 mls/hr DAILY LINDA Administration Protocol Multivitamins/Minerals 1 each 07/04/18 10:00 07/05/18 09:58 Theragran-M PO 1 each DAILY LINDA Administration Tenofovir Disoproxil Fumarate 300 mg 07/05/18 10:00 07/05/18 09:59 Viread - PO 300 mg DAILY LINDA Administration Zolpidem Tartrate 10 mg 07/03/18 23:01 Ambien - PO HS PRN INSOMNIA ASSESSMENT/PLAN: 47 y/o F w/PMH of HIV and asthma presents to the ER for AMS and admitted for AMS secondary to PNA -Acute metabolic encephalopathy secondary to pna -ID on board -Neuro on board - suggest MRI brain when possible -c/w rocephin and azithromycin -Improving, answering questions appropriately. -O2 supplementation as needed to keep O2 saturation above 90% -HIV -c/w HAART therapy. Last CD4 count in 600s and VL undetectable -Asthma -c/w duonebs as needed -Depression -c/w celexa -Insomnia -c/w ambien PRN -DVT ppx -lovenox -FEN -No fluids -monitor electrolytes -regular diet -Dispo: monitor on m/s Visit type - Emergency Visit Emergency Visit: Yes ED Registration Date: 07/03/18 Care time: The patient presented to the Emergency Department on the above date and was hospitalized for further evaluation of their emergent condition. - New Patient This patient is new to me today: Yes Date on this admission: 07/05/18 - Critical Care Critical Care patient: No
[2018-07-05] MEDS ORDERED: diazePAM 2 MG TABLET PO ONE (15:42)
--- NOTE | 2018-07-05 16:20 | DS ---
Physical Exam: SUBJECTIVE: Patient seen and examined OBJECTIVE: Vital Signs Period Temp Pulse Resp BP Sys/Sevilla Pulse Ox Last 24 Hr 98.3 F-98.7 F 77-94 15-20 118-144/79-93 98-98 PHYSICAL EXAM GENERAL: The patient is awake, alert, and fully oriented, in no acute distress. HEAD: Normal with no signs of trauma. EYES: PERRL, extraocular movements intact, sclera anicteric, conjunctiva clear. ENT: Ears normal, nares patent, oropharynx clear without exudates, moist mucous membranes. NECK: Trachea midline, full range of motion, supple. LUNGS: Breath sounds equal, clear to auscultation bilaterally, no wheezes, no crackles, no accessory muscle use. HEART: Regular rate and rhythm, S1, S2 without murmur, rub or gallop. ABDOMEN: Soft, nontender, nondistended, normoactive bowel sounds, no guarding, no rebound, no hepatosplenomegaly, no masses. EXTREMITIES: 2+ pulses, warm, well-perfused, no edema. NEUROLOGICAL: Cranial nerves II through XII grossly intact. Normal speech, gait not observed. PSYCH: Normal mood, normal affect. SKIN: Warm, dry, normal turgor, no rashes or lesions noted. LABS Laboratory Results - last 24 hr 07/04/18 16:00 Influenza A (Rapid) Negative Influenza B (Rapid) Negative HOSPITAL COURSE: Date of Admission:07/03/18 Date of Discharge: 07/05/18 47 y/o F w/PMH of HIV (on HAART, CD4 600, VL undetectable), asthma presented from PCP after being found altered. Found to have PNA and was being treated here with IV abx (rocephin and azithromycin). Pt's mental status improved. She was AAOx3, was aware of the treatment she was receiving, but decided to leave AMA. Risks of leaving without proper medical treatment were explained to the patient which included but were not limited to , worsening of current infection and disease process and this was understood by patient but she still decided to leave AMA. 47 y/o female with PMH of HIV (on HAART; last CD4 600's viral load undetectable) , asthma was sent in from her PCP after she was found to be altered. She initially presented to the office for worsening of her asthma and increase use of her rescue inhaler. When she got to her PCP she was found to not be at her baseline- was found to be more confused and agitated so she was sent to the hospital. upon arrival to the hospital she was slightly somnolent then became agitated requiring the use of haldol. she denies any sick contacts at home or any recent travel. upon my examination she was alert/oriented X3 hwoever unclear exactly why she was sent to the hospital Minutes to complete discharge: 45 Discharge Summary Reason For Visit: COMMUNITY ACQUIRED PNEUMONIA OF RIGHT LUNG Current Active Problems Altered mental status (Acute) Community acquired pneumonia of right lung (Acute) Low oxygen saturation (Acute) HIV (human immunodeficiency virus infection) (Chronic) - Instructions - Home Medications Comprehensive Discharge Medication List: Ambulatory Orders Mometasone Furoate [Nasonex] 2 sprays DAILY 06/03/11 Zolpidem Tartrate [Ambien] 10 tab PO HS PRN #30 tablet MDD 1 04/02/18 Abacavir/Dolutegravir/Lamivudi [Triumeq 600-50-300 mg Tablet] 1 each PO DAILY # 30 tablet 05/26/18 Albuterol Sulfate Inhaler - [Ventolin HFA Inhaler -] 2 inh PO Q4H #1 inh Citalopram Hydrobromide [Celexa -] 10 tab PO DAILY #5 tablet 05/26/18 Loratadine [Claritin -] 10 mg PO DAILY #30 tablet 05/26/18 Montelukast Na [Singulair -] 10 mg PO HS #30 tablet 05/26/18 Multivitamin,Therapeutic [Thera] 1 each PO DAILY #30 tablet 05/26/18 Tenofovir Disoproxil Fumarate [Viread -] 300 mg PO DAILY #30 tablet 05/26/18 This patient is new to me today: Yes Date on this admission: 07/05/18 Emergency Visit: Yes ED Registration Date: 07/03/18 Care time: The patient presented to the Emergency Department on the above date and was hospitalized for further evaluation of their emergent condition. Critical Care patient: No - Discharge Referral Referred to [facility] Med P.C.: No
--- NOTE | 2018-07-05 16:48 | PN ---
Teaching Attending Note Name of Resident: Adrian Richardson ATTENDING PHYSICIAN STATEMENT I saw and evaluated the patient. I reviewed the resident's note and discussed the case with the resident. I agree with the resident's findings and plan as documented. SUBJECTIVE: Patient os comfortable with no acute distress. AAOx3. NFD OBJECTIVE: Vital Signs Temperature 98.3 F 07/05/18 07:59 Pulse Rate 77 07/05/18 07:59 Respiratory Rate 15 07/05/18 07:59 Blood Pressure 144/91 07/05/18 07:59 O2 Sat by Pulse Oximetry (%) 98 07/05/18 09:00 GENERAL: Awake, alert, oriented x3 . NECK: no JVD; no lymphadenopathy. LUNGS: decreased BS BL at the bases. HEART: RRR, normal S1 and S2 without murmur, rub or gallop. ABDOMEN: Soft, nontender, not distended, positive for BS, no guarding, no rebound, no masses. MUSCULOSKELETAL: Normal range of motion at all joints. No CVA tenderness. EXTREMITIES: warm; well-perfused; no clubbing/cyanosis or edema NEUROLOGICAL: Cranial nerves II-XII intact. Normal speech. sensation intact B/L ; 5/5 strength UE and LE PSYCHIATRIC: Cooperative. Appropriate mood and affect. SKIN: Warm, dry, normal turgor, no rashes or lesions noted. CBCD WBC 3.5 K/mm3 (4.0-10.0) L 07/04/18 08:30 RBC 3.74 M/mm3 (3.60-5.2) 07/04/18 08:30 Hgb 11.5 GM/dL (10.7-15.3) 07/04/18 08:30 Hct 34.6 % (32.4-45.2) 07/04/18 08:30 MCV 92.3 fl (80-96) 07/04/18 08:30 MCHC 33.3 g/dl (32.0-36.0) 07/04/18 08:30 RDW 14.3 % (11.6-15.6) 07/04/18 08:30 Plt Count 163 K/MM3 (134-434) 07/04/18 08:30 MPV 8.2 fl (7.5-11.1) 07/04/18 08:30 CMP Sodium 139 mmol/L (136-145) 07/04/18 08:30 Potassium 4.0 mmol/L (3.5-5.1) 07/04/18 08:30 Chloride 105 mmol/L (98-107) 07/04/18 08:30 Carbon Dioxide 29 mmol/L (21-32) 07/04/18 08:30 Anion Gap 5 MMOL/L (8-16) L 07/04/18 08:30 BUN 10 mg/dL (7-18) 07/04/18 08:30 Creatinine 0.8 mg/dL (0.55-1.3) 07/04/18 08:30 Creat Clearance w eGFR > 60 (>60) 07/04/18 08:30 Random Glucose 79 mg/dL (74-106) 07/04/18 08:30 Calcium 8.1 mg/dL (8.5-10.1) L 07/04/18 08:30 Total Bilirubin 0.3 mg/dL (0.2-1) 07/04/18 08:30 AST 36 U/L (15-37) 07/04/18 08:30 ALT 30 U/L (13-61) 07/04/18 08:30 Alkaline Phosphatase 79 U/L (45-117) 07/04/18 08:30 Total Protein 7.9 g/dl (6.4-8.2) 07/04/18 08:30 Albumin 3.1 g/dl (3.4-5.0) L 07/04/18 08:30 CARDIAC ENZYMES Troponin I < 0.02 ng/ml (0.00-0.05) 07/03/18 14:05 Home Medications Medication Instructions Recorded Mometasone Furoate [Nasonex] 2 sprays DAILY 06/03/11 Zolpidem Tartrate [Ambien] 10 tab PO HS PRN #30 tablet MDD 1 04/02/18 Abacavir/Dolutegravir/Lamivudi 1 each PO DAILY #30 tablet 05/26/18 [Triumeq 600-50-300 mg Tablet] Albuterol Sulfate Inhaler - 2 inh PO Q4H #1 inh 05/26/18 [Ventolin HFA Inhaler -] Citalopram Hydrobromide [Celexa -] 10 tab PO DAILY #5 tablet 05/26/18 Loratadine [Claritin -] 10 mg PO DAILY #30 tablet 05/26/18 Montelukast Na [Singulair -] 10 mg PO HS #30 tablet 05/26/18 Multivitamin,Therapeutic [Thera] 1 each PO DAILY #30 tablet 05/26/18 Tenofovir Disoproxil Fumarate 300 mg PO DAILY #30 tablet 05/26/18 [Viread -] CXR: Reviewed ASSESSMENT AND PLAN: 47 y/o female with PMHx of HIV and asthma presents to the ED after being sent in from her PCP due to AMS and found to have a RLL infiltrate on chest xray. #acute metabolic encephalopathy improved due to having PNA on Rocephin/zith continue #HIV continue HAART therapy; last CD4 count in 600's; last viral load undetectable , ID on the case. #Methadone use: patient states her daily dose is 35mg , detox consult appreciated, discussed with Detox MD, will see the patient today. DVT PPX: lovenox
--- NOTE | 2018-07-12 11:56 | EKG ---
Test Reason : Blood Pressure : / mmHG Vent. Rate : 092 BPM Atrial Rate : 092 BPM P-R Int : 164 ms QRS Dur : 082 ms QT Int : 374 ms P-R-T Axes : 060 027 061 degrees QTc Int : 462 ms NORMAL SINUS RHYTHM POSSIBLE LEFT ATRIAL ENLARGEMENT BORDERLINE ECG WHEN COMPARED WITH ECG OF 08-OCT-2016 09:32, VENT. RATE HAS INCREASED BY 31 BPM Confirmed by ABA WHALEN, ISRA ([id number]) on 07/12/2018 11:56:40 AM Referred By: Confirmed By:ISRA TRONCOSO MD
== END 2018-07-05 16:44 | disposition left against medical advice (07) | DRG 139 ==
LOC: JER 12:48 → JERBED 21:24 → J6S 07-04 03:11
PROVIDERS: ADMIT Internal Medicine; ATTEND Internal Medicine
DX: J18.9 Pneumonia, unspecified organism (principal); G93.41 Metabolic encephalopathy; Z21 Asymptomatic human immunodeficiency virus [HIV] infection status; F11.20 Opioid dependence, uncomplicated; R41.82 Altered mental status, unspecified; F17.210 Nicotine dependence, cigarettes, uncomplicated; E66.9 Obesity, unspecified; Z68.30 Body mass index [BMI] 30.0-30.9, adult; J45.909 Unspecified asthma, uncomplicated
CPT/HCPCS: 36415; 71046-TC-FY; 80053; 80307; 81003; 81015; 82140; 82803; 83605; 83735; 84100; 84484; 84703; 85025; 85610; 85730; 87040; 87086; 87804; 87899; 93005; 93010; 99285-25